=== PATIENT | female | born 1945 | race Caucasian/White ===

== ENCOUNTER → 2018-01-05 | Outpatient (CLI) | payer MEDICARE, BC ==
[2018-01-05 13:49] VITALS: BP 114/71; PULSE 76; RESP 16; TEMP 97.9; BMI 40.4
[2018-01-05 15:17] LABS: HCT 45.5 % (34.0-46.0); HGB 13.5 gm/dL (11.4-16.0); Hypochromasia Slight; MCH 28.4 pg (25.0-35.0); MCHC 29.7 g/dL (31.0-37.0); MCV 95.4 fL (80.0-100.0); Mean Platelet Volume 6.7; Platelet Count 152 k/uL (150-450); RBC 4.77 m/uL (3.80-5.40); WBC 6.8 k/uL (3.8-10.6)
[2018-01-05 15:23] LABS: Partial Thromboplastin Time 23.4 sec (22.0-30.0); Prothrombin Time 10.1 sec (9.0-12.0)
[2018-01-05 15:35] LABS: ALT 19 U/L (9-52); AST 25 U/L (14-36); Albumin 3.9 g/dL (3.5-5.0); Alkaline Phosphatase 82 U/L (38-126); Anion Gap 9 mmol/L; Blood Urea Nitrogen 32 mg/dL (7-17); Calcium 9.3 mg/dL (8.4-10.2); Carbon Dioxide 27 mmol/L (22-30); Chloride 107 mmol/L (98-107); Cholesterol 181 mg/dL (<200); Glucose 95 mg/dL (74-99); HDL Cholesterol 72 mg/dL (40-60); LDL Cholesterol,Calculated 84 mg/dL (0-99); Magnesium 2.1 mg/dL (1.6-2.3); Phosphorus 4.4 mg/dL (2.5-4.5); Potassium 4.1 mmol/L (3.5-5.1); Sodium 143 mmol/L (137-145); Total Protein 6.5 g/dL (6.3-8.2); Triglycerides 127 mg/dL (<150)
[2018-01-05 19:37] LABS: Iron Saturation 15.08 (12.00-45.00)
[2018-01-05 19:46] LABS: Vitamin D 25 Hydroxy 46.9 ng/mL (30.0-100.0)
[2018-01-05 19:55] LABS: Folate, Serum >24.0 ng/mL
[2018-01-05 21:17] LABS: Parathyroid Hormone Intact 61.7 pg/mL (14.0-72.0)
[2018-01-05 22:21] LABS: Hemoglobin A1C 5.4 % (4.0-6.0)
[2018-01-06 12:20] LABS: Zinc, Serum 78 ug/dL (60-130)
[2018-01-06 13:13] LABS: Vitamin A 63 ug/dL (38-106)
[2018-01-06 14:50] LABS: Vitamin B1 50 ug/L (38-122)
[2018-01-11 18:36] LABS: Selenium 123 mcg/L (63-160)
--- NOTE | 2018-03-14 17:06 | P.PN ---
Subjective Progress Note Date: 01/05/18 DATE OF SERVICE: 01/05/2018 CHIEF COMPLAINT: Follow up sleeve gastrectomy HISTORY OF PRESENT ILLNESS: Mary Beaulieu is a 72-year-old female who is status post sleeve gastrectomy August 2014. She is over 3 years out. She had a panniculectomy over 2 years ago. She comes in now with spasms along the lower abdomen. Incidentally, she has gained 10 pounds in the last year and a half. She still reports gastroesophageal reflux disease. She reports inadequate protein intake. Her heaviest weight in the program was 344 pounds. [place] body weight for her 5 feet 3 frame is 140 pounds. Today she comes in weighing 228 pounds. She has gained 10 pounds in almost 2 years. Percent excess weight loss is 57 %. Her body mass index has been reduced from 61.1 down to 40.5. PAST MEDICAL HISTORY: 1. Osteoarthritis. 2. Super morbid obesity. 3. Hypertension. 4. Gastroesophageal reflux disease 5. Asthma PAST SURGICAL HISTORY: 1. Hysterectomy. 2. Rotator cuff surgery. 3. Carpal tunnel surgery. 4. Tonsillectomy. 5. Double knee replacement. 6. Sleeve gastrectomy with paraesophageal hiatal hernia repair. 7. Upper endoscopy. 8. Cholecystectomy. 9. Panniculectomy MEDICATIONS: 1. Ultram. 2. Vitamin E. 3. Multivitamin. 4. Magnesium. 5. Advair. 6. Calcium. 7. Biotin. 8. Vitamin C. 9. Vitamin A 10. Potassium 11. Prilosec ALLERGIES: 1. ADHESIVE TAPE. 2. PENICILLIN. SOCIAL HISTORY: No active tobacco use. FAMILY HISTORY: Morbid obesity including heart attack. REVIEW OF SYSTEMS: CONSTITUTIONAL: Her heaviest weight in the program was 344 pounds. [place] body weight for her 5 feet 3 frame is 140 pounds. Today she comes in weighing 228 pounds. She has gained 10 pounds in almost 2 years. Percent excess weight loss is 57 %. Her body mass index has been reduced from 61.1 down to 40.5. Total weight loss 116 pounds. MUSCULOSKELETAL: Has joint arthritis of the knees and hands, however, improved with weight loss. Has arthritis of the left shoulder joint. GASTROINTESTINAL: No dumping. Has GERD. No diarrhea. RESPIRATORY: Resolved obstructive sleep apnea. Has asthma. CARDIOVASCULAR: Resolved hypertensive heart disease. No chest pain. HEENT: No active troubles with vision or hearing. ENDOCRINE: No thyroid disorders or blood sugar glucose intolerance. NEURO: No reports of stroke or seizure disorders. PSYCH: No depression or suicidal ideation. HEMATOLOGIC: No recent DVT or pulmonary embolism. SKIN: Panniculitis resolved. No skin cancer. PHYSICAL EXAM: VITAL SIGNS: 5 foot 3, 228 pounds. Body mass index 40.5 Vital Signs Temp 97.9 F 01/05/18 13:45 Pulse 76 01/05/18 13:45 Resp 16 01/05/18 13:45 BP 114/71 01/05/18 13:45 Pulse Ox GENERAL: Well-developed female in no acute distress. ABDOMEN: Soft, nontender. Palpable fluctuance of the lower abdomen suspicious for seroma. No incisional hernia. MUSCULOSKELETAL: No clubbing, cyanosis, or edema. CHEST: Unlabored respirations. Equal bilateral excursions HEENT: No scleral icterus. Extraocular movements grossly intact. Moist buccal mucosa. NECK: Supple without lymphadenopathy. CARDIOVASCULAR: Regular rate and rhythm. 2+ radial pulses NEURO: No focal or lateralizing signs. Cranial nerves II-12 grossly intact. PSYCH: Appropriate affect. Alert and oriented to person, place and time. SKIN: Good skin turgor. Will perfused. ASSESSMENT: 1. Morbid obesity due to excess caloric intake. 2. Body mass index reduced from 61.1 to 40.5. 3. Status post sleeve gastrectomy. 4. GERD. 5. History of osteoarthritis of the shoulder. 6. Resolved obstructive sleep apnea. 7. Massive weight loss, 116 pounds. 8. Dietary surveillance and counseling. 9. Abdominal wall seroma 10. Suppressed TSH level. PLAN: 1. Her protein intake has been inadequate. Recommend referral to bariatric dietitian. 2. Protein intake over 75 g daily advised. 3. Recommend bariatric metabolic panel. 4. Recommend CT of the abdomen and pelvis to elucidate sizable seroma. May need ultrasound-guided drainage. Laboratory Last Values WBC 6.8 k/uL (3.8-10.6) 01/05/18 14:19 RBC 4.77 m/uL (3.80-5.40) 01/05/18 14:19 Hgb 13.5 gm/dL (11.4-16.0) 01/05/18 14:19 Hct 45.5 % (34.0-46.0) 01/05/18 14: MCV 95.4 fL (80.0-100.0) 01/05/18: MCH 28.4 pg (25.0-35.0) 01/05/18 14: MCHC 29.7 g/dL (31.0-37.0) L 01/05/18: RDW 14.0 % (11.5-15.5) 01/05/18: Plt Count 152 k/uL (150-450) 01/05/18 14: Hypochromasia Slight 01/05/18: PT 10.1 sec (9.0-12.0) 01/05/18: INR 1.0 (<1.2) 01/05/18: APTT 23.4 sec (22.0-30.0) 01/05/18: Sodium 143 mmol/L (137-145) 01/05/18: Potassium 4.1 mmol/L (3.5-5.1) 01/05/18: Chloride 107 mmol/L (98-107) 01/05/18: Carbon Dioxide 27 mmol/L (22-30) 01/05/18: Anion Gap 9 mmol/L 01/05/18: BUN 32 mg/dL (7-17) H 01/05/18: Creatinine 0.90 mg/dL (0.52-1.04) 01/05/18: Est GFR (MDRD) Af Amer >60 (>60 ml/min/1.73 sqM) 01/05/18: Est GFR (MDRD) Non-Af >60 (>60 ml/min/1.73 sqM) 01/05/18: Glucose 95 mg/dL (74-99) 01/05/18: Estimated Ave Glu mg/dL 108 01/05/18 14: Hemoglobin A1c 5.4 % (4.0-6.0) 01/05/18: Calcium 9.3 mg/dL (8.4-10.2) 01/05/18: Phosphorus 4.4 mg/dL (2.5-4.5) 01/05/18 14: Magnesium 2.1 mg/dL (1.6-2.3) 01/05/18 14: Iron 54 ug/dL (50-170) 01/05/18 14: TIBC 358 ug/dL (228-460) 01/05/18 14:19 Iron Saturation 15.08 (12.00-45.00) 01/05/18 14: Ferritin 44.4 ng/mL (10.0-291.0) 01/05/18 14: Total Bilirubin 1.0 mg/dL (0.2-1.3) 01/05/18 14: AST 25 U/L (14-36) 01/05/18 14: ALT 19 U/L (9-52) 01/05/18 14: Alkaline Phosphatase 82 U/L (38-126) 01/05/18 14: Total Protein 6.5 g/dL (6.3-8.2) 01/05/18 14: Albumin 3.9 g/dL (3.5-5.0) 01/05/18 14: Prealbumin 27.0 mg/dL (18.0-42.0) 01/05/18 14: Triglycerides 127 mg/dL (<150) 01/05/18 14: Cholesterol 181 mg/dL (<200) 01/05/18 14: LDL Cholesterol, Calc 84 mg/dL (0-99) 01/05/18 14: HDL Cholesterol 72 mg/dL (40-60) H 01/05/18 14: Vitamin A 63 ug/dL (38-106) 01/05/18 14: Vitamin B1 50 ug/L (38-122) 01/05/18 14: Vitamin B12 431.0 pg/mL (200.0-944.0) 01/05/18: Vitamin D 25-Hydroxy 46.9 ng/mL (30.0-100.0) 01/05/18 14:19 Folate >24.0 ng/mL 01/05/18 14:19 TSH 0.019 mIU/L (0.465-4.680) L 01/05/18 14:19 PTH Intact 61.7 pg/mL (14.0-72.0) 01/05/18 14:19 Copper 933 ug/L (810-1990) 01/05/18 14:19 Selenium 123 mcg/L (63-160) 01/05/18 14:19 Zinc 78 ug/dL (60-130) 01/05/18 14:19 TSH suppressed. Recommend full thyroid panel Objective - Vital Signs Vital signs: Vital Signs Temp 97.9 F 01/05/18 13:45 Pulse 76 01/05/18 13:45 Resp 16 01/05/18 13:45 BP 114/71 01/05/18 13:45 Pulse Ox Intake & Output 01/04/18 01/05/18 01/05/18 18:59 06:59 18:59 Weight 103.618 kg - Labs CBC & Chem 7: 01/05/18 14:19 01/05/18 14:19
== END | disposition home or self-care (01) ==
LOC: BARWHC3 13:32
PROVIDERS: ATTEND Surgery Plastic and Reconstructive Surgery
DX: Z09 Encounter for follow-up examination after completed treatment for conditions other than malignant neoplasm (principal); E66.01 Morbid (severe) obesity due to excess calories; T14.8XXA Other injury of unspecified body region, initial encounter; R63.4 Abnormal weight loss; K21.9 Gastro-esophageal reflux disease without esophagitis; Z98.84 Bariatric surgery status; Z87.39 Personal history of other diseases of the musculoskeletal system and connective tissue; Z68.41 Body mass index [BMI] 40.0-44.9, adult; Z71.3 Dietary counseling and surveillance; Z91.09 Other allergy status, other than to drugs and biological substances; Z88.0 Allergy status to penicillin; Z79.899 Other long term (current) drug therapy; Z79.891 Long term (current) use of opiate analgesic
CPT/HCPCS: 84255; 84134; 84425; 80061; 80053; 82607; 82728; 82525; 82746; 83540; 83550; 83735; 84100; 84443; 84590; 84630; 85027; 85610; 85730; 82306; 83970; 83036; 36415; G0463; 99211

== ENCOUNTER 2018-02-22 07:42 | Day surgery (SDC) | payer MEDICARE, BC ==
[2018-02-22 08:19] VITALS: BP 157/70; PULSE 57; RESP 18; TEMP 98
--- NOTE | 2018-02-22 10:13 | US ---
ULTRASOUND GUIDED FNA THYROID BIOPSY: CLINICAL HISTORY: Seroma FINDINGS: Preliminary imaging demonstrated no sizable fluid collection. IMPRESSION: 1. Discontinued procedure due to lack of fluid and no evidence to suggest seroma.
== END 2018-02-22 09:15 | disposition home or self-care (01) ==
LOC: RADPROMAIN 07:42
PROVIDERS: ATTEND Surgery Plastic and Reconstructive Surgery
DX: Z03.89 Encounter for observation for other suspected diseases and conditions ruled out (principal); Z53.8 Procedure and treatment not carried out for other reasons
CPT/HCPCS: 76536

== ENCOUNTER 2020-06-13 08:53 | Day surgery (SDC) | payer MEDICARE, BC ==
[2020-06-13 09:28] VITALS: RESP 18; TEMP 98.4
[2020-06-13 10:24] VITALS: BP 127/68; PULSE 62
--- NOTE | 2020-06-13 10:57 | US ---
Ultrasound EXAMINATION TYPE: US discontinued FNA panel DATE OF EXAM: 06/13/2020 HISTORY: Seroma. Patient is status post remote bypass surgery and panniculectomy several years ago. FINDINGS: Preprocedure preliminary ultrasound imaging demonstrated a 12.8 cm encapsulated hypoechoic heterogeno us septated area of scarring, granulation tissue, and several internal arteries and veins. This struc ture is just above the abdominal wall in the subcutaneous tissues, at the midline lower abdomen. Ther e is no evidence of fluid component to target for aspiration. No procedure performed. Findings were discussed with patient, all questions were answered, and patient understands there is n o fluid to target for potential procedure. IMPRESSION: Midline lower abdomen subcutaneous 12.8 cm area of scar, granulation tissue, and several internal arteries and veins. No fluid component to target for aspiration. No procedure performed.
== END 2020-06-13 10:15 | disposition home or self-care (01) ==
LOC: RADPROMAIN 08:53
PROVIDERS: ATTEND Surgery Plastic and Reconstructive Surgery
DX: L76.34 Postprocedural seroma of skin and subcutaneous tissue following other procedure (principal); L90.5 Scar conditions and fibrosis of skin; L92.9 Granulomatous disorder of the skin and subcutaneous tissue, unspecified
CPT/HCPCS: 76536

== ENCOUNTER → 2020-07-16 | Outpatient (CLI) | payer MEDICARE, BC ==
[2020-07-16 13:08] LABS: HCT 45.5 % (34.0-46.0); HGB 14.3 gm/dL (11.4-16.0); Hypochromasia Slight; MCH 28.4 pg (25.0-35.0); MCHC 31.4 g/dL (31.0-37.0); MCV 90.5 fL (80.0-100.0); Mean Platelet Volume 7.2; Platelet Count 142 k/uL (150-450); RBC 5.03 m/uL (3.80-5.40); RDW 14.1 % (11.5-15.5); WBC 6.1 k/uL (3.8-10.6)
[2020-07-16 19:17] LABS: Ferritin 25.1 ng/mL (10.0-291.0)
[2020-07-16 19:20] LABS: % Iron Saturation 16.94 (12.00-45.00); ALT 16 U/L (8-44); AST 24 U/L (13-35); African American GFR (CKD) 64.7 (60.0-200.0); Albumin/Globulin Ratio 2.15 (1.60-3.17); Alkaline Phosphatase 144 U/L (41-126); Calcium 9.3 mg/dL (8.7-10.3); Carbon Dioxide 27.9 mmol/L (21.6-31.8); Chloride 105 mmol/L (96-109); Chol/HDL Ratio 2.67; Cholesterol 171 mg/dL (0-200); Folate, Serum >24.0 ng/mL; Glucose 80 mg/dL (70-110); Iron 61 ug/dL (50-170); LDL Cholesterol,Calculated 80.6 mg/dL (0.0-131.0); Magnesium 2.3 mg/dL (1.5-2.4); Non-African American GFR(CKD) 55.8 (60.0-200.0); Phosphorus 4.2 mg/dL (2.4-5.1); Potassium 4.5 mmol/L (3.5-5.5); Sodium 142 mmol/L (135-145); Total Bilirubin 1.2 mg/dL (0.3-1.2); Total Iron Binding Capacity 360 ug/dL (228-460); Total Protein 6.3 g/dL (6.2-8.2)
[2020-07-16 19:39] LABS: Hemoglobin A1C 5.6 % (4.0-6.0)
[2020-07-16 22:45] LABS: INR 0.96 (0.90-1.11); Partial Thromboplastin Time 27.3 sec (24.7-29.9); Prothrombin Time 10.3 sec (9.9-11.9)
[2020-07-17 11:52] LABS: Zinc, Serum 110 ug/dL (60-130)
[2020-07-18 08:23] LABS: Vitamin A 57 ug/dL (38-106)
== END | disposition home or self-care (01) ==
LOC: LABWHC1 11:06
PROVIDERS: ATTEND Surgery Plastic and Reconstructive Surgery
DX: E21.1 Secondary hyperparathyroidism, not elsewhere classified (principal); E89.1 Postprocedural hypoinsulinemia; D50.8 Other iron deficiency anemias; K90.89 Other intestinal malabsorption; E55.9 Vitamin D deficiency, unspecified; K74.1 Hepatic sclerosis; N19 Unspecified kidney failure; K50.90 Crohn's disease, unspecified, without complications
CPT/HCPCS: 36415; 80053; 80061; 82306; 82525; 82607; 82728; 82746; 83036; 83540; 83550; 83735; 83970; 84100; 84134; 84255; 84425; 84443; 84590; 84630; 85027; 85610; 85730

== ENCOUNTER → 2022-11-10 | Outpatient (CLI) | payer MEDICARE ==
[2022-11-10 12:43] LABS: INR 0.9 (<1.2); Partial Thromboplastin Time 23.5 sec (22.0-30.0); Prothrombin Time 9.9 sec (9.0-12.0)
[2022-11-10 12:49] LABS: Amorphous Sediment,Urine Rare /hpf; Appearance,Urine Cloudy (Clear); Bacteria,Urine Many /hpf; Bilirubin,Urine Negative (Negative); Blood,Urine Negative (Negative); Color,Urine Yellow; Glucose,Urine (UA) Negative (Negative); Ketones,Urine Negative (Negative); Leukocyte Esterase,Urine Large (Negative); Mucus,Urine Rare /hpf; Nitrite,Urine Negative (Negative); Protein,Urine Trace (Negative); RBC,Urine 2 /hpf (0-5); Specific Gravity,Urine 1.028 (1.001-1.035); Squamous Epithelial Cell,Urine 1 /hpf (0-4); WBC,Urine >182 /hpf (0-5)
[2022-11-10 18:00] LABS: Basophils # (A) 0.04 X 10*3/uL (0.00-0.10); Basophils % (A) 0.7 %; Eosinophils # (A) 0.14 X 10*3/uL (0.04-0.35); Eosinophils % (A) 2.4 %; HCT 42.1 % (37.2-46.3); HGB 13.5 g/dL (12.0-15.0); Immature Grans, Automated 0.2 %; Lymphocytes # (A) 1.67 X 10*3/uL (0.90-5.00); Lymphocytes % (A) 28.2 %; MCH 29.3 pg (27.0-32.0); MCHC 32.1 g/dL (32.0-37.0); MCV 91.3 fL (80.0-97.0); Mean Platelet Volume 9.7 fL (9.5-12.2); Monocytes # (A) 0.44 X 10*3/uL (0.20-1.00); Monocytes % (A) 7.4 %; NRBC Per 100 WBC 0 /100 WBCS (0.0-0.0); Neutrophils # (A) 3.62 X 10*3/uL (1.80-7.70); Neutrophils % (A) 61.1 %; Platelet Count 144 X 10*3/uL (140-440); RBC 4.61 X 10*6/uL (4.10-5.20); RDW 13.8 % (11.5-14.5); WBC 5.92 X 10*3/uL (4.50-10.00)
[2022-11-10 18:50] LABS: African American GFR (CKD) 56.9 (60.0-200.0); Albumin 4.3 g/dL (3.8-4.9); Albumin/Globulin Ratio 2.05 (1.60-3.17); Anion Gap 12.6 mmol/L (10.00-18.00); BUN/Creat Ratio 20.45 Ratio (12.00-20.00); Blood Urea Nitrogen 22.5 mg/dL (9.0-27.0); Calcium 9.1 mg/dL (8.7-10.3); Carbon Dioxide 23.4 mmol/L (20.0-27.5); Globulin 2.1 g/dL (1.6-3.3); Non-African American GFR(CKD) 49.1 (60.0-200.0); Potassium 4.6 mmol/L (3.5-5.5); Total Bilirubin 0.7 mg/dL (0.30-1.20); Total Protein 6.4 g/dL (6.2-8.2)
== END | disposition home or self-care (01) ==
LOC: LABWHC1 11:04
PROVIDERS: ATTEND Orthopaedic Surgery
DX: Z01.812 Encounter for preprocedural laboratory examination (principal); M16.11 Unilateral primary osteoarthritis, right hip
CPT/HCPCS: 36415; 80053; 81001; 85025; 85610; 85730

== ENCOUNTER → 2023-02-25 | Outpatient (CLI) | payer MEDICARE ==
--- NOTE | 2023-02-25 11:08 | US ---
EXAMINATION TYPE: US venous doppler duplex LE RT DATE OF EXAM: 02/25/2023 10:49 AM COMPARISON: NONE CLINICAL HISTORY: 78-year-old female I80.9 PHLEBITIS. Larger habitus, right calf/ankle pain, no prev DVT SIDE PERFORMED: right TECHNIQUE: The lower extremity deep venous system is examined utilizing real time linear array sonog daina with graded compression, doppler sonography and color-flow sonography. VESSELS IMAGED: Common Femoral Vein Deep Femoral Vein Greater Saphenous Vein * Femoral Vein Popliteal Vein Small Saphenous Vein * Proximal Calf Veins (* superficial vessels) Electric [employer] notes: Some exam limitations due to pt habitus. Right Leg: neg for RLE DVT as visualized Results called to Elodia in the office at the time of the exam. IMPRESSION: Some exam limitations due to patient body habitus. No visualized DVT within the right lower extremity imaged from the groin to the upper calf.
== END | disposition home or self-care (01) ==
LOC: RADUSWWP 10:30
PROVIDERS: ATTEND Orthopaedic Surgery
DX: I80.9 Phlebitis and thrombophlebitis of unspecified site (principal); Z47.1 Aftercare following joint replacement surgery; Z96.641 Presence of right artificial hip joint; Z68.41 Body mass index [BMI] 40.0-44.9, adult

== ENCOUNTER → 2025-03-29 | Outpatient (CLI) | payer MEDICARE ==
--- NOTE | 2025-03-29 13:27 | CT ---
EXAMINATION TYPE: CT hip LT wo con CT DLP: 1326.8 mGycm, Automated exposure control for dose reduction was used. DATE OF EXAM: 03/29/2025 12:56 PM COMPARISON: CT abdomen and pelvis 11/11/2015, nuclear medicine 3 phase bone scan CLINICAL INDICATION:Female, 80 years old with history of M25.552 PAIN IN LEFT HIP; PHH, Left hip pain . TECHNIQUE: Axial images were obtained of the left hip without the use of IV contrast. Additional cor onal and sagittal reformatted images and soft tissue and bone window were obtained for review. FINDINGS: No acute fracture or dislocation. Postsurgical changes from left total hip arthroplasty. Th is creates streak artifact which limits evaluation. Hardware appears intact with appropriate alignmen t. No periprosthetic lucency identified. No osseous erosions. No significant soft tissue swelling or joint effusion is identified. Degenerative changes of the left SI joint is active disease. Degenerati ve disc disease of the partially visualized lumbar spine. Degenerative changes of the visualized pubi c symphysis. Atherosclerotic calcification of the visualized arterial vasculature. IMPRESSION: 1. No acute fracture or dislocation. 2. Post surgical changes from left total hip arthroplasty. This limits evaluation due to streak lily fact. Hardware appears intact with appropriate alignment. No periprosthetic lucency identified. [facility], , 03/29/2025 1:24 PM
== END | disposition home or self-care (01) ==
LOC: RADCTMAIN 12:39
PROVIDERS: ATTEND Orthopaedic Surgery
DX: T84.84XA Pain due to internal orthopedic prosthetic devices, implants and grafts, initial encounter (principal); T84.031A Mechanical loosening of internal left hip prosthetic joint, initial encounter; Z96.652 Presence of left artificial knee joint; Z96.642 Presence of left artificial hip joint

== ENCOUNTER → 2025-03-29 | Outpatient (CLI) | payer MEDICARE ==
--- NOTE | 2025-03-29 13:52 | NM ---
EXAMINATION TYPE: NM bone 3 phase DATE OF EXAM: 03/29/2025 COMPARISON: CT left hip earlier today. CLINICAL INDICATION: Female, 80 years old with history of M25.552 pain L hip; Triple phase bone scintigraphy was performed following the injection of 25 mCi Tc 99m MDP. Immediate images and 4 hours post injection images acquired. FINDINGS: There is no suspicious increased radiotracer uptake in the dynamic arterial or the soft tissue phase images to the left hip. Delayed phase images show no suspicious asymmetric increased radiotracer upta ke to the left hip. There is lucency from metallic hardware in the bilateral hips noted. IMPRESSION: No abnormal three-phase radiotracer uptake to the left hip to suggest active infection or other abnor mality. [facility], , 03/29/2025 1:50 PM
== END | disposition home or self-care (01) ==
LOC: RADNMMAIN 07:40
PROVIDERS: ATTEND Orthopaedic Surgery
DX: T84.031A Mechanical loosening of internal left hip prosthetic joint, initial encounter (principal)
CPT/HCPCS: 85652; 86140; 78315; A9503